=== PATIENT | male | born 1950 | race Caucasian/White ===

== ENCOUNTER 2020-10-13 17:17 | Inpatient (IN) | payer OTHER, MEDICARE ==
[~2020-10-13] VITALS: Ht 182.9 cm; Wt 107.9 kg
[~2020-10-13 17:17] MED LIST: ASCO500; Advair Hfa 230-12 GM; FEXPSEER; FISH1000; Multiple Vitam1 EAC1; THYR60
[2020-10-13 17:41] LABS: BASOPHILS ABSOLUTE AUTO 0.16 K/mm3 (0.00-0.23); BASOPHILS PERCENT AUTO 1 % (0-2); EOSINOPHILS ABSOLUTE AUTO 0.35 K/mm3 (0.00-0.68); EOSINOPHILS PERCENT AUTO 2 % (0-6); Hemoglobin 15.5 g/dL (13.5-17.5); IMMATURE GRAN ABSOLUTE AUTO 0.14 K/mm3 (0.00-0.10); IMMATURE GRAN PERCENT AUTO 1 % (0-1); LYMPHOCYTES ABSOLUTE AUTO 1.17 K/mm3 (0.84-5.20); LYMPHOCYTES PERCENT AUTO 6 % (21-46); MONOCYTES ABSOLUTE AUTO 0.98 K/mm3 (0.16-1.47); MONOCYTES PERCENT AUTO 5 % (4-13); Mean Corpuscular HGB 29.2 pg (26.0-34.0); Mean Corpuscular HGB Conc 33.7 g/dL (31.5-36.5); Mean Corpuscular Volume 87 fL (80-100); Mean Platelet Volume 9.7 fL (9.1-12.4); NEUTROPHILS ABSOLUTE AUTO 15.91 K/mm3 (1.96-9.15); NEUTROPHILS PERCENT AUTO 85 % (41-73); Platelet Count 364 K/mm3 (150-400); RDW Coefficient Variation 12.5 % (11.7-14.2); RDW Standard Deviation 39.7 fL (35.1-46.3); White Blood Cell Count 18.71 K/mm3 (4.00-11.30)
[2020-10-13 18:03] LABS: Alanine Aminotransfer (ALT/SGP 42 U/L (12-78); Albumin, Blood 3.9 g/dL (3.4-5.0); Albumin/Globulin Ratio 0.9 (0.8-1.8); Alk Phos 100 U/L (50-136); Anion Gap 7 mmol/L (6-16); Aspartate Aminotrans (AST/SGOT 27 U/L (12-37); Bilirubin, Total 0.4 mg/dL (0.1-1.0); Blood Urea Nitrogen 16 mg/dL (8-24); Bun/Creatinine Ratio 15.7 (12.0-20.0); CO2, Blood 21 mmol/L (21-32); Calcium, Blood 9.7 mg/dL (8.5-10.1); Chloride, Blood 110 mmol/L (98-108); Creatinine, Blood 1.02 mg/dL (0.60-1.20); Globulin, Blood 4.5 g/dL (2.2-4.0); Glomerular Filtration Rate >60 (60-); Glucose, Blood 161 mg/dL (70-99); Sodium, Blood 138 mmol/L (136-145); Total Protein, Blood 8.4 g/dL (6.4-8.2); Troponin I <0.015 ng/mL (0.000-0.040)
[2020-10-13 19:12] LABS: Influenza A, PCR NEGATIVE (NEGATIVE); Influenza B, PCR NEGATIVE (NEGATIVE); Resp Syncytial Virus, PCR NEGATIVE (NEGATIVE); SARS-Cov-2 (COVID-19) PCR, MMC NEGATIVE (NEGATIVE)
[2020-10-13] MEDS ORDERED: ALBU90OI INH (20:32)
[2020-10-13] MEDS ORDERED: SYMBICORT 16010.2 GM INH (20:32)
[2020-10-13] MEDS ORDERED: EUTHYROX150 MC1 PO (20:33)
[2020-10-13] MEDS ORDERED: GEMFIBROZIL600 MG PO (20:33)
[2020-10-13] MEDS ORDERED: Pravastatin Sod80 MG PO (20:34)
[2020-10-13] MEDS ORDERED: Aspir 8181 MG PO (20:52)
[2020-10-14 05:27] LABS: BASOPHILS ABSOLUTE AUTO 0.11 K/mm3 (0.00-0.23); BASOPHILS PERCENT AUTO 0 % (0-2); EOSINOPHILS ABSOLUTE AUTO 0.03 K/mm3 (0.00-0.68); EOSINOPHILS PERCENT AUTO 0 % (0-6); Hematocrit 40.9 % (37.0-53.0); Hemoglobin 13.8 g/dL (13.5-17.5); IMMATURE GRAN ABSOLUTE AUTO 0.12 K/mm3 (0.00-0.10); IMMATURE GRAN PERCENT AUTO 0 % (0-1); LYMPHOCYTES ABSOLUTE AUTO 1.44 K/mm3 (0.84-5.20); LYMPHOCYTES PERCENT AUTO 5 % (21-46); MONOCYTES ABSOLUTE AUTO 0.57 K/mm3 (0.16-1.47); MONOCYTES PERCENT AUTO 2 % (4-13); Mean Corpuscular HGB 29.8 pg (26.0-34.0); Mean Corpuscular HGB Conc 33.7 g/dL (31.5-36.5); Mean Corpuscular Volume 88 fL (80-100); Mean Platelet Volume 9.8 fL (9.1-12.4); NEUTROPHILS ABSOLUTE AUTO 24.56 K/mm3 (1.96-9.15); NEUTROPHILS PERCENT AUTO 92 % (41-73); Platelet Count 297 K/mm3 (150-400); RDW Coefficient Variation 12.8 % (11.7-14.2); RDW Standard Deviation 41.2 fL (35.1-46.3); Red Blood Cell Count 4.63 M/mm3 (4.30-5.90); White Blood Cell Count 26.83 K/mm3 (4.00-11.30)
[2020-10-14 05:38] LABS: Anion Gap 6 mmol/L (6-16); Blood Urea Nitrogen 17 mg/dL (8-24); Bun/Creatinine Ratio 17.7 (12.0-20.0); CO2, Blood 24 mmol/L (21-32); Calcium, Blood 8.9 mg/dL (8.5-10.1); Chloride, Blood 110 mmol/L (98-108); Creatinine, Blood 0.96 mg/dL (0.60-1.20); Glomerular Filtration Rate >60 (60-); Glucose, Blood 197 mg/dL (70-99); Potassium, Blood 4.4 mmol/L (3.5-5.5); Sodium, Blood 140 mmol/L (136-145)
--- NOTE | 2020-10-14 06:28 | NUR ---
SHIFT SUMMARY PT WAS A NEW ADMIT DURING THE NIGHT, ARRIVING ON THE FLOOR AT 2310. HE WAS ADMITTED FOR SEPSIS R/T PNA. PT IS A&O X 4, SBA TO THE BATHROOM. PT IS CURRENTLY ON 4-5L O2 VIA NC, SATTING > 90%. ALL OTHER VITAL SIGNS STABLE. MILD DYSPNEA REPORTED, BUT NO C/O PAIN OR NAUSEA. PT SLEPT WELL AFTER ADMITTED. NO ACUTE CHANGES IN PT CONDITION NOTED. THIS AM, PT'S CALLED THIS RN, VERY ANXIOUS AND STATING THAT THE PT "CALLED ME AND TOLD ME HIS BLOOD PRESSURE WAS 90/70" AND THAT SHE WAS "VERY WORRIED ABOUT HIM". THIS RN CHECKED ON THE PT, WHO HAD CONFUSED HIS O2 BIOX READING FOR HIS BP. BP WAS STABLE AT THAT TIME AT 115/69. BIOX READING AND MEANINGS WAS EXPLAINED TO PT AND . WILL CONTINUE TO MONITOR AND TREAT PER EMAR UNTIL HAND OFF TO DAY SHIFT RN.
--- NOTE | 2020-10-14 09:42 | NUR ---
REVIEW FLUTTER VALVE AND I.S. WITH PATIENT. WILL ALTERNATE A FEW TIMES AN HOUR.
--- NOTE | 2020-10-14 16:19 | NUR ---
ALERT. ORIENTED. TELE ON. SINCE ABOUT 1400 HAS BEEN OFF OXYGEN, BUT ON CONTINUOUS SAT MONITOR AND RUNNING 90%. WAS AMBULATORY IN HALLWAY WITH OFF OXYGEN WITHOUT DIFFICULTY. IV PATENT. HAS NOT C/O SOB. TM
--- NOTE | 2020-10-14 20:35 | NUR ---
ASSUMPTION OF CARE. AOX3, INDEPENDENT IN THE ROOM. CURRENTLY ON RA AND SATS ARE 91%. USING INSPIROMETER AND FLUTTER VALVE. LUNG SOUNDS ARE CLEAR WITH SLIGHT DIMINISHED IN BASES. COUGH PRODUCTIVE WITH SMALL GREEN THICH SPUTUM. NO CHEST PAIN. MEDS GIVEN WILL START ANTIBOTICS ONCE HE GETS DONE WITH HIS WALK. VS WNL. AFEBRILE. CALL LIGHT IS IN REACH.
--- NOTE | 2020-10-15 05:16 | NUR ---
SHIFT SUMMARY: AOX3, INDEPENDENT IN THE ROOM. OCCATIONAL DIZZINESS BUT IS STEADY ON HIS FEET. BEEN ON RA WHILE AWAKE SATS IN LOW 90'S. WHEN ASLEEP 2 LITERS IS PLACED TO KEEP ABOVE 90%. COUGH IS NOW MINIMAL. SPUTUM CULTURE SHOWED GRAM + AND GRAM - BACTERIA. NEW ORDERS FOR LABS RECEIVED. NO PAIN OR SOB NOTED. VS WNL, AFEBRILE. HOPES HE CAN GO HOME TODAY. CALL LIGHT REMAINED IN REACH. NO FURTHER CHANGES TO REPORT.
[2020-10-15 05:31] LABS: Hemoglobin 13.2 g/dL (13.5-17.5); Mean Corpuscular HGB 29.1 pg (26.0-34.0); Mean Corpuscular Volume 88 fL (80-100); Mean Platelet Volume 10.1 fL (9.1-12.4); Platelet Count 306 K/mm3 (150-400); RDW Coefficient Variation 12.6 % (11.7-14.2); Red Blood Cell Count 4.53 M/mm3 (4.30-5.90); White Blood Cell Count 22.44 K/mm3 (4.00-11.30)
[2020-10-15 05:53] LABS: BAND PERCENT MAN 15 % (0-8); BASOPHILS PERCENT MAN 0 % (0-2); EOSINOPHILS PERCENT MAN 0 % (0-6); LYMPHOCYTES ABSOLUTE MAN 1.57 K/mm3 (0.84-5.20); LYMPHOCYTES PERCENT MAN 7 % (21-46); MONOCYTES ABSOLUTE MAN 0.67 K/mm3 (0.16-1.47); MONOCYTES PERCENT MAN 3 % (4-13); NEUTROPHILS ABSOLUTE MAN 20.19 K/mm3 (1.96-9.15); SEG NEUTROPHILS PERCENT MAN 75 % (41-73); TOTAL CELLS COUNTED 100
[2020-10-15 05:56] LABS: Anion Gap 6 mmol/L (6-16); Blood Urea Nitrogen 30 mg/dL (8-24); Bun/Creatinine Ratio 31.5 (12.0-20.0); CO2, Blood 22 mmol/L (21-32); Calcium, Blood 9.8 mg/dL (8.5-10.1); Chloride, Blood 111 mmol/L (98-108); Creatinine, Blood 0.95 mg/dL (0.60-1.20); Glomerular Filtration Rate >60 (60-); Glucose, Blood 265 mg/dL (70-99); Phosphorus, Blood 2.3 mg/dL (2.5-4.9); Potassium, Blood 4.5 mmol/L (3.5-5.5); Sodium, Blood 139 mmol/L (136-145)
[2020-10-15 18:02] LABS: Adenovirus Not Detected (NOT DETECT); Bordetella pertussis Not Detected (NOT DETECT); Chlamydophila pneumoniae Not Detected (NOT DETECT); Coronavirus 229E Not Detected (NOT DETECT); Coronavirus HKU1 Not Detected (NOT DETECT); Coronavirus NL63 Not Detected (NOT DETECT); Coronavirus OC43 Not Detected (NOT DETECT); Human Metapneumovirus Not Detected (NOT DETECT); Human Rhinovirus/Enterovirus Not Detected (NOT DETECT); Influenza A/2009-H1 Not Detected (NOT DETECT); Influenza A/H1 Not Detected (NOT DETECT); Influenza A/H3 Not Detected (NOT DETECT); Influenza B Not Detected (NOT DETECT); Mycoplasma pneumoniae Not Detected (NOT DETECT); Parainfluenza Virus 1 Not Detected (NOT DETECT); Parainfluenza Virus 2 Not Detected (NOT DETECT); Parainfluenza Virus 3 Not Detected (NOT DETECT); Parainfluenza Virus 4 Not Detected (NOT DETECT); Respiratory Syncytial Virus Not Detected (NOT DETECT); SARS-Cov-2 (COVID-19), BioFire Not Detected (NOT DETECT)
--- NOTE | 2020-10-15 18:14 | NUR ---
ALERT. ORIENTED. AMBULATORY IN HALLWAY WITHOUT DIFFICULTY OR LABORED BREATHING. SATS 90-94% ON R.A. DECREASED COUGHING TODAY. INDEPENDENT IN ROOM. IV PATENT, SALINE LOCKED. NO ACUTE CHANGES. WCTM
--- NOTE | 2020-10-16 05:27 | NUR ---
PT IS A/O, IND IN ROOM, OCCASIONAL COUGH. PT IS EXPECTING TO D/C HOME TODAY, PENDING LAB RESULTS.
[2020-10-16 08:29] LABS: BASOPHILS ABSOLUTE AUTO 0.09 K/mm3 (0.00-0.23); BASOPHILS PERCENT AUTO 1 % (0-2); EOSINOPHILS ABSOLUTE AUTO 0.06 K/mm3 (0.00-0.68); EOSINOPHILS PERCENT AUTO 0 % (0-6); Hematocrit 44.9 % (37.0-53.0); Hemoglobin 14.7 g/dL (13.5-17.5); IMMATURE GRAN PERCENT AUTO 2 % (0-1); LYMPHOCYTES ABSOLUTE AUTO 3.15 K/mm3 (0.84-5.20); LYMPHOCYTES PERCENT AUTO 19 % (21-46); MONOCYTES ABSOLUTE AUTO 0.92 K/mm3 (0.16-1.47); MONOCYTES PERCENT AUTO 6 % (4-13); Mean Corpuscular HGB Conc 32.7 g/dL (31.5-36.5); Mean Corpuscular Volume 89 fL (80-100); Mean Platelet Volume 9.8 fL (9.1-12.4); NEUTROPHILS ABSOLUTE AUTO 11.88 K/mm3 (1.96-9.15); NEUTROPHILS PERCENT AUTO 72 % (41-73); Platelet Count 351 K/mm3 (150-400); RDW Coefficient Variation 12.7 % (11.7-14.2); RDW Standard Deviation 41.5 fL (35.1-46.3); Red Blood Cell Count 5.07 M/mm3 (4.30-5.90)
[2020-10-16] MEDS ORDERED: LACT PO (08:36)
[2020-10-16] MEDS ORDERED: Prednisone10 MG PO (08:36)
[2020-10-16] MEDS ORDERED: LEVO750 PO (08:38)
[2020-10-16 08:50] LABS: Alanine Aminotransfer (ALT/SGP 61 U/L (12-78); Albumin, Blood 3.5 g/dL (3.4-5.0); Albumin/Globulin Ratio 0.8 (0.8-1.8); Alk Phos 91 U/L (50-136); Anion Gap 4 mmol/L (6-16); Aspartate Aminotrans (AST/SGOT 40 U/L (12-37); Bilirubin, Total 0.3 mg/dL (0.1-1.0); Blood Urea Nitrogen 29 mg/dL (8-24); Bun/Creatinine Ratio 30.6 (12.0-20.0); CO2, Blood 25 mmol/L (21-32); Calcium, Blood 9.1 mg/dL (8.5-10.1); Chloride, Blood 111 mmol/L (98-108); Creatinine, Blood 0.95 mg/dL (0.60-1.20); Globulin, Blood 4.4 g/dL (2.2-4.0); Glomerular Filtration Rate >60 (60-); Glucose, Blood 130 mg/dL (70-99); Potassium, Blood 3.9 mmol/L (3.5-5.5); Sodium, Blood 140 mmol/L (136-145); Total Protein, Blood 7.9 g/dL (6.4-8.2)
--- NOTE | 2020-10-16 19:28 | NUR ---
discharged after discussing with his medications, need for appointments and life change instructions, pt was very eager get home due to having arranged assistance based on what he belived he was told would be the time he could go home, dr and he compromised and the pt stayed late and the dr came up early, escorted pt to waiting car as soon as dr completed his discharge and discussion, iv removed, medication list sent to pharmacy, pt was unwilling to wait to sign documents
== END 2020-10-16 08:10 | disposition left against medical advice (07) | DRG 871 ==
LOC: ER 17:17 → MEDS 21:09
PROVIDERS: Emergency Medicine; Internal Medicine; Nurse Practitioner Acute Care; Physician Assistant; ADMIT Internal Medicine
DX: A41.9 Sepsis, unspecified organism (principal); J96.01 Acute respiratory failure with hypoxia; J18.9 Pneumonia, unspecified organism; J44.0 Chronic obstructive pulmonary disease with (acute) lower respiratory infection; R65.20 Severe sepsis without septic shock; Z20.822 Contact with and (suspected) exposure to COVID-19; I10 Essential (primary) hypertension; E78.5 Hyperlipidemia, unspecified; Z53.29 Procedure and treatment not carried out because of patient's decision for other reasons; E66.9 Obesity, unspecified; Z68.32 Body mass index [BMI] 32.0-32.9, adult; Z87.891 Personal history of nicotine dependence; Z79.82 Long term (current) use of aspirin
CPT/HCPCS: 0202U; 0241U; 36415; 71045; 71260; 80048; 80053; 80069; 83605; 84145; 84484; 85025; 87040; 87070; 87081; 87449; 93005; 93010; 94640; 94760; 94762; 96361; 96374; 99285-25; A9270; J0692; J1650; J2920; J2930; J3370; J7030; J7050; J7512; Q9967

== ENCOUNTER 2025-03-27 22:20 | Inpatient (IN) | payer OTHER ==
[~2025-03-27] VITALS: Ht 177.8 cm; Wt 99.8 kg
[~2025-03-27 22:20] MED LIST changes: +ALBU90OI INH; +Aspir 8181 MG PO; +GEMFIBROZIL600 MG PO; +LACT PO; +LEVO750 PO; +LEVOTHYROXINE150 MC9 PO; +Pravastatin Sod80 MG PO; +Prednisone10 MG PO; +SYMBICORT 16010.2 GM INH; +TOPROL XL25 MG; +Ventolin5 MG/1 ML INH
[2025-03-27 23:12] LABS: BASOPHILS ABSOLUTE AUTO 0.03 K/mm3 (0.00-0.23); BASOPHILS PERCENT AUTO 0 % (0-2); EOSINOPHILS ABSOLUTE AUTO 0.00 K/mm3 (0.00-0.68); EOSINOPHILS PERCENT AUTO 0 % (0-6); Hematocrit 45.4 % (37.0-53.0); Hemoglobin 15.2 g/dL (13.5-17.5); IMMATURE GRAN ABSOLUTE AUTO 0.07 K/mm3 (0.00-0.10); IMMATURE GRAN PERCENT AUTO 1 % (0-1); LYMPHOCYTES ABSOLUTE AUTO 1.22 K/mm3 (0.84-5.20); LYMPHOCYTES PERCENT AUTO 9 % (21-46); MONOCYTES ABSOLUTE AUTO 1.20 K/mm3 (0.16-1.47); MONOCYTES PERCENT AUTO 9 % (4-13); Mean Corpuscular HGB Conc 33.5 g/dL (31.5-36.5); Mean Corpuscular Volume 87 fL (80-100); NEUTROPHILS ABSOLUTE AUTO 10.69 K/mm3 (1.96-9.15); NEUTROPHILS PERCENT AUTO 81 % (41-73); NRBC ABSOLUTE 0.00 K/mm3 (0.00-0.02); NRBC Auto 0.0 /100 WBC (0.0-0.2); Platelet Count 327 K/mm3 (150-400); RDW Coefficient Variation 13.1 % (11.7-14.2); RDW Standard Deviation 41.4 fL (35.1-46.3)
[2025-03-27 23:36] LABS: Alanine Aminotransfer (ALT/SGP 393.0 U/L (12-78); Albumin, Blood 4.1 g/dL (3.4-5.0); Albumin/Globulin Ratio 1.1 (0.8-1.8); Anion Gap 10.0 mmol/L (3-11); Aspartate Aminotrans (AST/SGOT 341.0 U/L (12-37); Bilirubin, Total 6.9 mg/dL (0.1-1.0); Blood Urea Nitrogen 20.0 mg/dL (8-24); CO2, Blood 26.0 mmol/L (21-32); Calcium, Blood 10.1 mg/dL (8.5-10.1); Chloride, Blood 105.0 mmol/L (98-108); Creatinine, Blood 1.08 mg/dL (0.60-1.20); Globulin, Blood 3.9 g/dL (2.2-4.0); Glucose, Blood 180.0 mg/dL (70-99); Potassium, Blood 3.8 mmol/L (3.5-5.5); Sodium, Blood 137.0 mmol/L (136-145); Total Protein, Blood 8.0 g/dL (6.4-8.2)
[2025-03-28] MEDS ORDERED: FentaNYL Citrate 50 MCG/ML 2 ML Injection IV PRN ×3 (00:05→10:00)
[2025-03-28] MEDS ORDERED: Ondansetron HCl 2 MG / ML 2ML Vial IV ONE (00:05)
[2025-03-28] MEDS ORDERED: NS 1,000 ML IV SCH (00:05)
[2025-03-28] MEDS ORDERED: Piperacillin/Tazobactam Sod 4.5 GM in NS 100 ML IV ONE (00:10)
[2025-03-28 02:15] LABS: Source, Urine Clean Catch
[2025-03-28 02:18] LABS: Glucose Qualitative, Urine Neg (Neg); Ketones, Urine Neg (Neg); Leukocyte Esterase, Urine Neg (Neg); Protein, Urine 2+ (Neg); Specific Gravity, Urine 1.010 (1.003-1.022); Urobilinogen, Urine 2+ (Normal)
[2025-03-28 02:26] LABS: Bilirubin, Urine 1+ (Neg); Color, Urine Yellow (P-Yellow)
[2025-03-28 02:27] LABS: Red Blood Cells, Urine 0-2 /hpf (0-2); White Blood Cells, Urine 0-2 /hpf (0-5)
[2025-03-28] MEDS ORDERED: Ondansetron HCl 2 MG / ML 2ML Vial IV PRN ×2 (05:50→10:00)
[2025-03-28] MEDS ORDERED: FLU VACC TS2025(65UP)/MF59C/PF 45 MCG/0.5 ML SYRINGE IM SCH (05:50)
[2025-03-28] MEDS ORDERED: Naloxone HCl 0.4MG / ML 1ML Vial IV PRN (05:50)
[2025-03-28] MEDS ORDERED: Piperacillin/Tazobactam Sod 4.5 GM in NS 100 ML IV SCH (06:00)
[2025-03-28] MEDS ORDERED: Lactobacil 2-S.Thermo-Bifido 1 1 Cap PO SCH (09:00)
[2025-03-28] MEDS ORDERED: Bupivacaine 0.5% HCl 5 MG/ML 30MLVIAL ONE (09:47)
[2025-03-28] MEDS ORDERED: Rocuronium Bromide 10 MG/ML 5ML Injection IV ONE (09:49)
[2025-03-28] MEDS ORDERED: Dexamethasone Sod Phos 10 MG/ML 1ML VIAL ONE (09:49)
[2025-03-28] MEDS ORDERED: Ondansetron HCl 2 MG / ML 2ML Vial ONE (09:49)
[2025-03-28] MEDS ORDERED: FentaNYL Citrate 50 MCG/ML 2 ML Injection ONE (09:55)
[2025-03-28] MEDS ORDERED: Lidocaine HCl 4% 5 ML SDA ONE (09:58)
[2025-03-28] MEDS ORDERED: HYDROmorphone HCl/Pf 1MG SYR IV PRN ×2 (10:00→22:45)
[2025-03-28] MEDS ORDERED: Albuterol 2.5 MG/3 ML VIAL INH PRN ×2 (10:00→17:55)
[2025-03-28] MEDS ORDERED: Prochlorperazine Edisylate 10 mg Vial IV PRN (10:00)
[2025-03-28 10:14] VITALS: BP 125/67
[2025-03-28 13:05] VITALS: BP 116/66
--- NOTE | 2025-03-28 13:07 | NUR ---
12:00 REPORT FROM JEROME QUICK. PT A&OX4, AMBULATING INDEPENDENTLY IN HOSPITAL AWAITING HOSPITAL BED. NO COMPLAINTS. 1300 REPORT TO JOB COACH. PT RETURNED TO DSU C . NO COMPLAINTS. PT REMAINS NPO. PT TO SURGICAL ROOM IN WITH ALL BELONGINGS.
--- NOTE | 2025-03-28 13:51 | NUR ---
ARRIVAL TO UNIT PT SETTLED BACK IN BED, BOOSTED. PT DECLINES WANTING SNACKS RIGHT NOW PT STATES "I JUST WANT TO SLEEP" CALL LIGHT IN REACH, BED IN LOWEST POSITION.
--- NOTE | 2025-03-28 13:57 | NUR ---
ARRIVAL TO UNIT PT ARRIVED TO UNIT VIA WC. SETTLED IN ROOM. CALL LIGHT IN REACH.
--- NOTE | 2025-03-28 17:03 | NUR ---
SHIFT SUMMARY PT IS A/OX4. IND IN ROOM, ABLE TO MAKE NEEDS KNOWN. PT HASNT REQUIRED ANY PAIN MEDICATION T/O SHIFT. AWAITING IMAGING RESULTS FOR SURGICAL PLAN. NO N/V. DENIES CP/P. BED IN LOWEST POSITION, CALL LIGHT IN REACH.
[2025-03-28 19:22] VITALS: BP 132/79
[2025-03-28 23:38] VITALS: BP 132/79
--- NOTE | 2025-03-29 00:45 | NUR ---
COBRA TRANSFER PT TRANSFERRED TO [facility] VIA AMBULANCE FOR ERCP. PERSONAL BELONGINGS SENT WITH PT. ON 2L O2 VIA NC, PT WAS SATTING 88-89% ON RA. PT AAOX4 AND INDEPENDENT WITH AMBULATION, ABLE TO TRANSER HIMSELF FROM BED TO GURNEY WITH NO ISSUE. PT LEFT UNIT AT 0045.
--- NOTE | 2025-03-29 01:07 | NUR ---
REPORT CALLED TO JEROME SZYMANSKI AT [facility]. GAVE UPDATE ON PT'S ETA.
== END 2025-03-29 00:45 | disposition short-term general hospital (02) | DRG 445 ==
LOC: ER 22:20 → ERHOLD 03-28 00:48 → SURS 03-28 13:11
PROVIDERS: Emergency Medicine; ADMIT Student in an Organized Health Care Education/Training Program
DX: K80.42 Calculus of bile duct with acute cholecystitis without obstruction (principal); N32.1 Vesicointestinal fistula; J44.9 Chronic obstructive pulmonary disease, unspecified; E78.5 Hyperlipidemia, unspecified; E86.0 Dehydration; E03.9 Hypothyroidism, unspecified; Z96.652 Presence of left artificial knee joint; R74.01 Elevation of levels of liver transaminase levels; K57.30 Diverticulosis of large intestine without perforation or abscess without bleeding; Z88.8 Allergy status to other drugs, medicaments and biological substances; Z88.1 Allergy status to other antibiotic agents; Z79.51 Long term (current) use of inhaled steroids; Z79.899 Other long term (current) drug therapy; Z79.890 Hormone replacement therapy; Z87.19 Personal history of other diseases of the digestive system; Z98.890 Other specified postprocedural states; Z90.49 Acquired absence of other specified parts of digestive tract; Z87.891 Personal history of nicotine dependence
CPT/HCPCS: 74177; 74181; 76705; 80053; 81001; 83690; 85025; 93005; 93010; 94640; 94664; 94760; 96365; 96375; 99285-25; A9270; J1100; J1171; J2003; J2405; J2543; J2704; J3010; J7030; J7120; Q9967